=== PATIENT | female | born 1995 | race Caucasian/White ===

== ENCOUNTER 2016-12-30 16:35 | Emergency (ER) | payer SELFPAY ==
[2016-12-30] MEDS ORDERED: Ketorolac 30 MG/ML SDV IVPUSH ONE (17:02)
[2016-12-30] MEDS ORDERED: Ondansetron 4 MG/2 ML SDV IVPUSH ONE (17:02)
[2016-12-30] MEDS ORDERED: Sodium Chloride 0.9% 1,000 ML IV ONE (17:02)
--- NOTE | 2016-12-30 17:15 | EDM.PDOC ---
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 Patient indicates that she has a history of endometriosis that she has had gynecological intervention for the last 2 consecutive years but yet this is the worst she has experienced. Patient indicates she was seen at [facility] and was given tramadol but that that is not addressing her pain. Indicates that [facility] was deep.] Review of systems: As per history of present illness and below otherwise all systems reviewed and negative. Past medical history: As per history of present illness and as reviewed below otherwise noncontributory. Surgical history: As per history of present illness and as reviewed below otherwise noncontributory. Social history: No reported history of drug or alcohol abuse. Family history: As per history of present illness and as reviewed below otherwise noncontributory. Physical exam: HEENT: Atraumatic, normocephalic, pupils reactive, negative for conjunctival pallor or scleral icterus, mucous membranes moist, throat clear, neck supple, nontender, trachea midline. Lungs: Clear to auscultation, breath sounds equal bilaterally, chest nontender. Heart: S1S2, regular, negative for clicks, rubs, or JVD. Abdomen: Soft, nondistended, tenderness specifically over the suprapubic region otherwise diffusely radiating from the symphysis pubis. Negative for masses or hepatosplenomegaly. Negative for costovertebral tenderness. Pelvis: Stable nontender. Genitourinary: Deferred. Rectal: Deferred. Extremities: Atraumatic, negative for cords or calf pain. Neurovascular unremarkable. Neuro: Awake, alert, oriented. Cranial nerves II through XII unremarkable. Cerebellum unremarkable. Motor and sensory unremarkable throughout. Exam nonfocal. 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 Bilateral Lower Anterior Abdomen Pain Score (Numeric/FACES): 9 - Related Data Allergies Allergy/AdvReac Type Severity Reaction Status Date / Time azithromycin Allergy Rash Verified 09/11/16 16:18 lorazepam [From Ativan] Allergy Rash Verified 09/11/16 16:18 Home Meds: Home Meds DULoxetine [Cymbalta] 90 mg PO DAILY 09/05/16 [History] Gabapentin [Neurontin] 1,200 mg PO TID 09/05/16 [History] cloNIDine [Catapres] 1 - 2 tab PO BEDTIME 09/05/16 [History] levETIRAcetam [Keppra] 500 mg PO BID #60 tablet 09/06/16 [Rx] Norgestimate-Ethinyl Estradiol [Sprintec 28 Day Tablet] 12/30/16 [History] Past Medical History HEENT History: Reports: None Cardiovascular History: Reports: None Respiratory History: Reports: Asthma Gastrointestinal History: Reports: None Genitourinary History: Reports: None 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 History: Reports: Endometriosis Musculoskeletal History: Reports: None Neurological History: Reports: Headaches, Chronic, Neuropathy, Peripheral, Seizure, Other (See Below) Other Neuro History: Guillian Warrior Psychiatric History: Reports: None Endocrine/Metabolic History: Reports: None Hematologic History: Reports: None Immunologic History: Reports: None Oncologic (Cancer) History: Reports: None Dermatologic History: Reports: None - Infectious Disease History Infectious Disease History: Reports: None - Past Surgical History Head Surgeries/Procedures: Reports: None HEENT Surgical History: Reports: Adenoidectomy, Tonsillectomy GI Surgical History: Reports: EGD Social & Family History - Family History Family Medical History: Noncontributory - Tobacco Use Smoking Status *Q: Current Some Day Smoker Years of Tobacco use: 1 Packs/Tins Daily: 0.2 - Recreational Drug Use Recreational Drug Use: No ED ROS GENERAL - Review of Systems Review Of Systems: See Below (See history of present illness) ED EXAM, GI/ABD - Physical Exam Exam: See Below (See history of present illness) Course - Vital Signs Last Recorded V/S: Last Vital Signs Temp 36.4 C 12/30/16 16:40 Pulse 80 12/30/16 18:23 Resp 18 12/30/16 16:40 BP 112/56 L 12/30/16 18:23 Pulse Ox 97 12/30/16 16:40 - Orders/Labs/Meds Labs: Laboratory Tests 12/30/16 12/30/16 12/30/16 Range/Units 17:58 17:58 18:14 WBC 10.05 (4.0-11.0) K/uL RBC 4.64 (4.30-5.90) M/uL Hgb 13.3 (12.0-16.0) g/dL Hct 40.1 (36.0-46.0) % MCV 86.4 (80.0-98.0) fL MCH 28.7 (27.0-32.0) pg MCHC 33.2 (31.0-37.0) g/dL RDW Std Deviation 40.0 (28.0-62.0) fl RDW Coeff of Trinity 13 (11.0-15.0) % Plt Count 189 (150-400) K/uL MPV 10.30 (7.40-12.00) fL Neut % (Auto) 77.1 (48.0-80.0) % Lymph % (Auto) 18.1 (16.0-40.0) % Bath % (Auto) 3.0 (0.0-15.0) % Eos % (Auto) 1.6 (0.0-7.0) % Baso % (Auto) 0.2 (0.0-1.5) % Neut # (Auto) 7.8 H (1.4-5.7) K/uL Lymph # (Auto) 1.8 (0.6-2.4) K/uL Bath # (Auto) 0.3 (0.0-0.8) K/uL Eos # (Auto) 0.2 (0.0-0.7) K/uL Baso # (Auto) 0.0 (0.0-0.1) K/uL Nucleated RBC % 0.0 /100WBC Nucleated RBCs # 0 K/uL Sodium 138 (136-146) mmol/L Potassium 3.5 (3.5-5.1) mmol/L Chloride 108 (98-110) mmol/L Carbon Dioxide 20 L (21-31) mmol/L BUN 9 (6.0-23.0) mg/dL Creatinine 0.8 (0.6-1.5) mg/dL Est Cr Clr Drug Dosing 108.79 mL/min Estimated GFR (MDRD) > 60.0 ml/min Glucose 124 H (60-110) mg/dL Calcium 8.4 L (8.8-10.8) mg/dL Total Bilirubin 0.2 (0.1-1.5) mg/dL AST 20 (5-40) IU/L ALT 23 (8-54) IU/L Alkaline Phosphatase 96 (40-150) Total Protein 6.9 (6.0-8.0) g/dL Albumin 3.9 (3.5-5.0) g/dL Globulin 3.0 (2.0-3.5) g/dL Albumin/Globulin Ratio 1.3 (1.3-2.8) Urine Color Urine Appearance Urine pH (5.0-8.0) Ur Specific Mellen (1.001-1.035) Urine Protein (NEGATIVE) mg/dL Urine Glucose (UA) (NEGATIVE) mg/dL Urine Ketones (NEGATIVE) mg/dL Urine Occult Blood (NEGATIVE) Urine Nitrite (NEGATIVE) Urine Bilirubin (NEGATIVE) Urine Ictotest Urine Urobilinogen (<2.0) EU/dL Ur Leukocyte Esterase (NEGATIVE) Urine RBC (0-2/HPF) Urine WBC (0-5/HPF) Ur Epithelial Cells (NONE-FEW) Urine Bacteria (NEGATIVE) Urine Mucus (NONE-MOD) Urine HCG, Qual NEGATIVE (NEGATIVE) 12/30/16 Range/Units 18:14 WBC (4.0-11.0) K/uL RBC (4.30-5.90) M/uL Hgb (12.0-16.0) g/dL Hct (36.0-46.0) % MCV (80.0-98.0) fL MCH (27.0-32.0) pg MCHC (31.0-37.0) g/dL RDW Std Deviation (28.0-62.0) fl RDW Coeff of Trinity (11.0-15.0) % Plt Count (150-400) K/uL MPV (7.40-12.00) fL Neut % (Auto) (48.0-80.0) % Lymph % (Auto) (16.0-40.0) % Bath % (Auto) (0.0-15.0) % Eos % (Auto) (0.0-7.0) % Baso % (Auto) (0.0-1.5) % Neut # (Auto) (1.4-5.7) K/uL Lymph # (Auto) (0.6-2.4) K/uL Bath # (Auto) (0.0-0.8) K/uL Eos # (Auto) (0.0-0.7) K/uL Baso # (Auto) (0.0-0.1) K/uL Nucleated RBC % /100WBC Nucleated RBCs # K/uL Sodium (136-146) mmol/L Potassium (3.5-5.1) mmol/L Chloride (98-110) mmol/L Carbon Dioxide (21-31) mmol/L BUN (6.0-23.0) mg/dL Creatinine (0.6-1.5) mg/dL Est Cr Clr Drug Dosing mL/min Estimated GFR (MDRD) ml/min Glucose (60-110) mg/dL Calcium (8.8-10.8) mg/dL Total Bilirubin (0.1-1.5) mg/dL AST (5-40) IU/L ALT (8-54) IU/L Alkaline Phosphatase (40-150) Total Protein (6.0-8.0) g/dL Albumin (3.5-5.0) g/dL Globulin (2.0-3.5) g/dL Albumin/Globulin Ratio (1.3-2.8) Urine Color DARK YELLOW Urine Appearance CLEAR Urine pH 5.5 (5.0-8.0) Ur Specific Mellen >= 1.030 (1.001-1.035) Urine Protein TRACE (NEGATIVE) mg/dL Urine Glucose (UA) NEGATIVE (NEGATIVE) mg/dL Urine Ketones NEGATIVE (NEGATIVE) mg/dL Urine Occult Blood TRACE-INTACT (NEGATIVE) Urine Nitrite POSITIVE H (NEGATIVE) Urine Bilirubin SMALL H (NEGATIVE) Urine Ictotest POSITIVE Urine Urobilinogen 1.0 (<2.0) EU/dL Ur Leukocyte Esterase NEGATIVE (NEGATIVE) Urine RBC 0-2 (0-2/HPF) Urine WBC 3-6 (0-5/HPF) Ur Epithelial Cells FEW (NONE-FEW) Urine Bacteria FEW (NEGATIVE) Urine Mucus MODERATE (NONE-MOD) Urine HCG, Qual (NEGATIVE) Meds: Medications Discontinued Medications Generic Name Dose Route Start Last Admin Trade Name Mel PRN Reason Stop Dose Admin Sodium Chloride 1,000 mls @ 999 mls/hr 12/30/16 17:02 12/30/16 17:56 Normal Saline IV 12/30/16 18:02 999 mls/hr STAT ONE Administration Ketorolac Tromethamine 30 mg 12/30/16 17:02 12/30/16 18:01 Toradol IVPUSH 12/30/16 17:03 30 mg ONETIME ONE Administration Ondansetron HCl 4 mg 12/30/16 17:02 12/30/16 17:58 Zofran IVPUSH 12/30/16 17:03 4 mg ONETIME ONE Administration Departure - Departure Time of Disposition: 18:56 Disposition: Home, Self-Care 01 Condition: Good Clinical Impression: Pelvic pain, Endometriosis - Discharge Information Instructions: Pelvic Pain, Female Forms: ED Department Discharge Additional Instructions: The following information is given to patients seen in the emergency department who are being discharged to home. This information is to outline your options for follow-up care. We provide all patients seen in our emergency department with a follow-up referral. The need for follow-up, as well as the timing and circumstances, are variable depending upon the specifics of your emergency department visit. If you don't have a primary care physician on staff, we will provide you with a referral. We always advise you to contact your personal physician following an emergency department visit to inform them of the circumstance of the visit and for follow-up with them and/or the need for any referrals to a consulting specialist. The emergency department will also refer you to a specialist when appropriate. This referral assures that you have the opportunity for follow-up care with a specialist. All of these measure are taken in an effort to provide you with optimal care, which includes your follow-up. Under all circumstances we always encourage you to contact your private physician who remains a resource for coordinating your care. When calling for follow-up care, please make the office aware that this follow-up is from your recent emergency room visit. If for any reason you are refused follow-up, please contact the [facility] Emergency Department at and asked to speak to the emergency department charge nurse. You have been provided some pain medication please take as directed Follow-up with PCP in 1-2 days [facility] [address] [place] [id number]
[2016-12-30 18:28] LABS: CHLORIDE,CL 108 mmol/L (98-110); SODIUM,NA 138 mmol/L (136-146)
[2016-12-30 19:20] VITALS: BP 112/49
== END 2016-12-30 19:17 | disposition home or self-care (01) ==
LOC: MW.ED 16:35
DX: N80.9 Endometriosis, unspecified (principal); J45.909 Unspecified asthma, uncomplicated; F17.210 Nicotine dependence, cigarettes, uncomplicated; Z98.890 Other specified postprocedural states; Z79.899 Other long term (current) drug therapy; Z88.1 Allergy status to other antibiotic agents; Z88.8 Allergy status to other drugs, medicaments and biological substances
CPT/HCPCS: 36415; 80053; 81001; 81025; 85025; 96361; 96374; 96375; 99283; J1885; J2405; J7040; 99284

== ENCOUNTER 2016-12-30 19:51 | Emergency (ER) | payer SELFPAY ==
--- NOTE | 2016-12-30 20:06 | EDM.PDOC ---
ED HPI GENERAL MEDICAL PROBLEM - General Stated Complaint: PT HAS STOMACH PAINS Time Seen by Provider: 12/30/16 20:06 Source of Information: Reports: Patient History Limitations: Reports: No Limitations - History of Present Illness INITIAL COMMENTS - FREE TEXT/NARRATIVE: HISTORY AND PHYSICAL: History of present illness: 21-year-old female with a history of endometriosis previously treated surgically , now presents to the emergency department complaining of pelvic pain typical for her with this process. Patient states she has exacerbations about once a year. She has a control implant. Sensation states she's having symptoms that are typical for her, gradual onset recently. No nausea vomiting or diarrhea. No fevers chills sweats or shaking chills. She reports normal bowel and bladder habits. No vaginal discharge or bleeding. Patient was seen earlier and laboratory workup was done but no imaging at that time. Patient is concerned because her pain has persisted and she is concerned that she might need further workup. Full labs earlier today were unremarkable and patient's test was negative Review of systems: As per history of present illness and below otherwise all systems reviewed and negative. Past medical history: As per history of present illness and as reviewed below otherwise noncontributory. Surgical history: As per history of present illness and as reviewed below otherwise noncontributory. Social history: No reported history of drug or alcohol abuse. Family history: As per history of present illness and as reviewed below otherwise noncontributory. Physical exam: Well-appearing patient distress vital signs unremarkable. Abdominal exam is completely benign except mild pelvic tenderness fundal distribution. No guarding or rebound HEENT: Atraumatic, normocephalic, pupils reactive, negative for conjunctival pallor or scleral icterus, mucous membranes moist, throat clear, neck supple, nontender, trachea midline. Lungs: Clear to auscultation, breath sounds equal bilaterally, chest nontender. Heart: S1S2, regular, negative for clicks, rubs, or JVD. Abdomen: Soft, nondistended, nontender. Negative for masses or hepatosplenomegaly. Negative for costovertebral tenderness. Pelvis: Stable nontender. Genitourinary: Deferred. Rectal: Deferred. Extremities: Atraumatic, negative for cords or calf pain. Neurovascular unremarkable. Neuro: Awake, alert, oriented. Cranial nerves II through XII unremarkable. Cerebellum unremarkable. Motor and sensory unremarkable throughout. Exam nonfocal. Diagnostics: [CT abdomen and pelvis] Therapeutics: [Analgesia administered] Impression: [Pelvic pain Exacerbation of endometriosis] Plan: [Signs and symptoms consistent with exacerbation of endometriosis with which patient is very familiar. Appearing and her abdominal exam is benign. Will follow clinically, do pelvic exam and image with CT to rule out the need for any further intervention or treatment.] CT of the abdomen and pelvis unremarkable. As patient has had pain or weeks, findings are consistent with suspected exacerbation of endometriosis complicated by anxiety. Vital signs are stable and no further workup or treatment indicated at this time. Xanax given for anxiolysis and patient aware to follow-up with PCP and with the [employer] doctor to whom her doctor just referred her. Patient and mom agree with outpatient follow-up and strict return precautions given Definitive disposition and diagnosis as appropriate pending reevaluation and review of above. Abdomen Pain Score (Numeric/FACES): 10 - Related Data Allergies Allergy/AdvReac Type Severity Reaction Status Date / Time azithromycin Allergy Rash Verified 12/30/16 20:07 lorazepam [From Ativan] Allergy Rash Verified 12/30/16 20:07 Home Meds: Home Meds DULoxetine [Cymbalta] 90 mg PO DAILY 09/05/16 [History] Gabapentin [Neurontin] 1,200 mg PO TID 09/05/16 [History] cloNIDine [Catapres] 1 - 2 tab PO BEDTIME 09/05/16 [History] levETIRAcetam [Keppra] 500 mg PO BID #60 tablet 09/06/16 [Rx] Norgestimate-Ethinyl Estradiol [Sprintec 28 Day Tablet] 12/30/16 [History] Past Medical History HEENT History: Reports: None Cardiovascular History: Reports: None Respiratory History: Reports: Asthma Gastrointestinal History: Reports: None Genitourinary History: Reports: None 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 Other OB/BYN History: laparoscopy for endometriosis x 2 Musculoskeletal History: Reports: None Neurological History: Reports: Headaches, Chronic, Neuropathy, Peripheral, Seizure, Other (See Below) Other Neuro History: Guillian Bandana Psychiatric History: Reports: None Endocrine/Metabolic History: Reports: None Hematologic History: Reports: None Immunologic History: Reports: None Oncologic (Cancer) History: Reports: None Dermatologic History: Reports: None - Infectious Disease History Infectious Disease History: Reports: None - Past Surgical History Head Surgeries/Procedures: Reports: None HEENT Surgical History: Reports: Adenoidectomy, Tonsillectomy GI Surgical History: Reports: EGD Social & Family History - Family History Family Medical History: Noncontributory - Tobacco Use Smoking Status *Q: Current Some Day Smoker Years of Tobacco use: 1 Packs/Tins Daily: 0.2 - Recreational Drug Use Recreational Drug Use: No ED ROS GENERAL - Review of Systems Review Of Systems: See Below (History of present illness) ED EXAM, GENERAL - Physical Exam Exam: See Below (History of present illness) Course - Vital Signs Last Recorded V/S: Last Vital Signs Temp 36.6 C 12/30/16 20:07 Pulse 82 12/30/16 20:07 Resp 16 12/30/16 20:07 BP 116/58 L 12/30/16 20:07 Pulse Ox 98 12/30/16 20:07 - Orders/Labs/Meds Orders: Active Orders 24 hr Category Date Time Status Abdomen Pelvis w Cont [CT] Stat Exams 12/30/16 20:14 Taken Meds: Medications Discontinued Medications Generic Name Dose Route Start Last Admin Trade Name Oscarq PRN Reason Stop Dose Admin Alprazolam 1 mg 12/30/16 22:58 Xanax PO 12/30/16 22:59 NOW ONE Hydromorphone HCl 1 mg 12/30/16 20:14 12/30/16 20:51 Dilaudid IVPUSH 12/30/16 20:15 1 mg ONETIME ONE Administration Hydromorphone HCl 1 mg 12/30/16 21:55 12/30/16 21:59 Dilaudid IVPUSH 12/30/16 21:56 1 mg NOW STA Administration Iopamidol 100 ml 12/30/16 20:35 12/30/16 20:44 Isovue Multipack-370 (76%) IVPUSH 12/30/16 20:36 85 ml ONETIME STA Administration Ketorolac Tromethamine 30 mg 12/30/16 20:17 12/30/16 20:52 Toradol IVPUSH 12/30/16 20:18 Not Given ONETIME ONE Departure - Departure Time of Disposition: 23:09 Disposition: Home, Self-Care 01 Condition: Good Clinical Impression: Pelvic pain, Endometriosis, Anxiety - Discharge Information Instructions: Pelvic Pain, Female, [id number], Endometriosis, Abdominal Pain , Adult, [id number] Referrals: PCP,None [Primary Care Provider] - Forms: ED Department Discharge Additional Instructions: Your labs and CT of the abdomen and pelvis results were unremarkable today. It appears that this episode of pain is likely a result of your endometriosis. Take ibuprofen 600 mg every 6 hours and use your [place] as previously prescribed as needed. Take your medication for anxiety as previously prescribed as needed. Follow-up with your Dr. and with the [facility] doctor to whom you were referred and return immediately for new severe or worsening symptoms - My Orders Last 24 Hours: My Active Orders 12/30/16 20:14 Abdomen Pelvis w Cont [CT] Stat - Assessment/Plan Last 24 Hours: My Active Orders 12/30/16 20:14 Abdomen Pelvis w Cont [CT] Stat
[2016-12-30] MEDS ORDERED: HYDROmorphone 1 MG/ML Syringe IVPUSH ONE (20:14)
[2016-12-30] MEDS ORDERED: Ketorolac 30 MG/ML SDV IVPUSH ONE (20:17)
[2016-12-30] MEDS ORDERED: Iopamidol 755 MG/ML 500 ML Multipack Bottle IVPUSH STA (20:35)
[2016-12-30] MEDS ORDERED: HYDROmorphone 2 MG/ML Syringe IVPUSH STA (21:55)
[2016-12-30] MEDS ORDERED: ALPRAZolam 0.5 MG Tab PO ONE (22:58)
[2016-12-30 23:43] VITALS: BP 119/57
--- NOTE | 2016-12-31 10:01 | CT ---
EXAM DATE: 12/30/16 PATIENT'S AGE: 21 Patient: ANNY FELIX Facility: [place], [place] Site . Site : 1995 Study: CT Abdomen/Pelvis [id number]/14/2017 8:53:34 PM Ordering Physician: Gerald Forrester Final Report: INDICATION: Abdominal PAIN. History OF Endometriosis. TECHNIQUE: CT abdomen and pelvis acquired with 85 mL of Isovue 370 IV contrast. COMPARISON: None. FINDINGS: Lower chest: Unremarkable. Liver: Unremarkable. Spleen: Unremarkable. Pancreas: Unremarkable. Gallbladder and bile ducts: Unremarkable. Kidneys: Unremarkable. Adrenal glands: Unremarkable. GI tract: Fecal loading of the colon. No obstruction or focal inflammatory changes. Right lower quadrant surgical clips suggesting prior appendectomy. The appendix is not visualized. No free air. Trace pelvic free fluid is likely physiologic. Vascular structures: Unremarkable. Lymph nodes: Unremarkable. Pelvic Organs: Tampon in the vagina. Apparent prominence of the endometrium. No abnormal adnexal lesion evident. The bladder is unremarkable. Bones: No acute abnormality. IMPRESSION: No acute intra-abdominal or pelvic abnormality. Apparent prominence of the endometrium may be physiologic. There is a tampon in the vagina. Followup pelvic ultrasound in 6 weeks could be considered for further evaluation if there is clinical concern. Fecal loading of the colon. Dictated by Barrington Mendes MD @ 12/30/2016 9:22:54 PM Dictated by: Barrington Mendes MD @ 12/30/2016 21:23:10 (Electronic Signature) Report Signed by Proxy. SHELLEY
== END 2016-12-30 23:20 | disposition home or self-care (01) ==
LOC: MW.ED 19:51
DX: N80.9 Endometriosis, unspecified (principal); F41.9 Anxiety disorder, unspecified; F17.210 Nicotine dependence, cigarettes, uncomplicated; Z98.890 Other specified postprocedural states; Z88.1 Allergy status to other antibiotic agents; Z88.8 Allergy status to other drugs, medicaments and biological substances
CPT/HCPCS: 74177; 96374; 96376; 99284; A9270; J1170; Q9967

== ENCOUNTER 2017-01-13 19:03 | Emergency (ER) | payer SELFPAY ==
[2017-01-13] MEDS ORDERED: Diphtheria,Pertussis(Acell),Tetanus Vaccine 0.5 ML Syringe IM ONE (19:16)
[2017-01-13] MEDS ORDERED: Lidocaine 1% 20 ML MDV INJECT ONE (19:16)
[2017-01-13] MEDS ORDERED: Bacitracin Oint 1 GM U/D Packet TOP ONE ×2 (19:51→19:53)
--- NOTE | 2017-01-13 19:59 | EDM.PDOC ---
ED HPI GENERAL MEDICAL PROBLEM - General Chief Complaint: Laceration Stated Complaint: PT CUT LT HAND Time Seen by Provider: 01/13/17 19:14 Source of Information: Reports: Patient History Limitations: Reports: No Limitations - History of Present Illness INITIAL COMMENTS - FREE TEXT/NARRATIVE: HISTORY AND PHYSICAL: []21-year-old female presenting with laceration to the lateral palmar surface History of Present Illness: [] She was reaching into her purse didn't realize her knife was there and sustained injury to the side of her hand does not recall her last tetanus vaccine Review of Systems: As per history of present illness and below otherwise all systems reviewed and negative. Past medical history: As per history of present illness and as reviewed below otherwise noncontributory. Surgical history: As per history of present illness and as reviewed below otherwise noncontributory. Social history: No reported history of drug or alcohol abuse. Family history: As per history of present illness and as reviewed below otherwise noncontributory. Physical exam: Alert and oriented female answering questions appropriately HEENT: Atraumatic, normocehpalic, pupils reactive, negative for conjunctival pallor or scleral icterus, mucous membranes moist, neck supple, nontender, trachea midline. Lungs: Clear to auscultation, breath sounds equal bilaterally, chest non tender. Heart: S1S2, regular, negative for clicks, rubs, or JVD. Extremities: Laceration 2.5cm .25 depth, negative for cords or calf pain. Neurovascular unremarkable. Neuro: Awake, alert, oriented. Cranial nerves II through XII unremarkable. Cerebellum unremarkable. Motor and sensory unremarkable throughout. Exam nonfocal. Diagnostics: [] Therapeutics: [Sutures 3 placed Adacel IM] Impression: [Laceration with repair] Plan: []Home Keep clean and dry Tylenol for discomfort Sutures out in 7-10 days Definitive disposition and diagnosis as appropriate pending reevaluation and review of above. Onset: Today, Sudden Duration: Minutes: left hand Pain Score (Numeric/FACES): 5 - Related Data Allergies Allergy/AdvReac Type Severity Reaction Status Date / Time azithromycin Allergy Rash Verified 01/13/17 19:07 lorazepam [From Ativan] Allergy Rash Verified 01/13/17 19:07 Home Meds: Home Meds DULoxetine [Cymbalta] 90 mg PO DAILY 09/05/16 [History] Norgestimate-Ethinyl Estradiol [Sprintec 28 Day Tablet] 12/30/16 [History] Past Medical History HEENT History: Reports: None Cardiovascular History: Reports: None Respiratory History: Reports: Asthma Gastrointestinal History: Reports: None Genitourinary History: Reports: None 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 History: Reports: Endometriosis Other OB/BYN History: laparoscopy for endometriosis x 2 Musculoskeletal History: Reports: None Neurological History: Reports: Headaches, Chronic, Neuropathy, Peripheral, Seizure, Other (See Below) Other Neuro History: Gu[facility] [place] Psychiatric History: Reports: Anxiety, Depression, Mood Swings Endocrine/Metabolic History: Reports: None Hematologic History: Reports: None Immunologic History: Reports: None Oncologic (Cancer) History: Reports: None Dermatologic History: Reports: None - Infectious Disease History Infectious Disease History: Reports: None - Past Surgical History HEENT Surgical History: Reports: Adenoidectomy, Tonsillectomy GI Surgical History: Reports: EGD Social & Family History - Family History Family Medical History: Noncontributory - Tobacco Use Smoking Status *Q: Current Every Day Smoker Years of Tobacco use: 2 Packs/Tins Daily: 1 - Caffeine Use Caffeine Use: Reports: Coffee Caffeine Use Comment: 1 cup daily - Recreational Drug Use Recreational Drug Use: No ED ROS GENERAL - Review of Systems Review Of Systems: ROS reveals no pertinent complaints other than HPI. ED EXAM, SKIN/RASH Exam: See Below (See dictation) ED SKIN PROCEDURES - Laceration/Wound Repair Left Lateral Hand Lac/Wound length In cm: 2.5 Distal NVT: Neuro & Vascular Intact, No Tendon Injury Anesthetic Type: Local Local Anesthesia - Lidocaine (Xylocaine): 1% Plain Local Anesthetic Volume: 3cc Skin Prep: Saline Exploration/Debridement/Repair: Wound Explored, in a Bloodless Field, Explored to Base Closed with: Sutures Suture Size: 3-0 # of Sutures: 3 Suture Type: Nylon, Interrupted, Simple Drain Placement: No Sterile Dressing Applied: Nurse Tetanus Status Addressed: Yes Complications: No Course - Vital Signs Last Recorded V/S: Last Vital Signs Temp 36.3 C 01/13/17 19:12 Pulse 86 01/13/17 19:12 Resp 18 01/13/17 19:12 BP 130/74 01/13/17 19:12 Pulse Ox 98 01/13/17 19:12 - Orders/Labs/Meds Orders: Active Orders 24 hr Category Date Time Status Vaccines to be Administered [RC] PER UNIT ROUTINE Care 01/13/17 19:16 Active Bacitracin [Bacitracin Oint 1 GM] Med 01/13/17 19:53 Once 1 dose TOP ONETIME ONE Medication Orders Bacitracin (Bacitracin Oint 1 Gm) 1 dose TOP ONETIME ONE Stop: 01/13/17 19:54 Meds: Medications Generic Name Dose Route Start Last Admin Trade Name Freq PRN Reason Stop Dose Admin Bacitracin 1 dose 01/13/17 19:53 Bacitracin Oint 1 Gm TOP 01/13/17 19:54 ONETIME ONE Discontinued Medications Generic Name Dose Route Start Last Admin Trade Name Freq PRN Reason Stop Dose Admin Bacitracin 1 dose 01/13/17 19:51 Bacitracin Oint 1 Gm TOP 01/13/17 19:52 ONETIME ONE Diphtheria/Tetanus/Acell Pertussis 0.5 ml 01/13/17 19:16 01/13/17 19:30 Adacel IM 01/13/17 19:17 0.5 ml .ONCE ONE Administration Lidocaine HCl 20 ml 01/13/17 19:16 01/13/17 19:30 Xylocaine 1% INJECT 01/13/17 19:17 20 ml ONETIME ONE Administration Departure - Departure Time of Disposition: 19:57 Disposition: Home, Self-Care 01 Condition: Good Clinical Impression: Laceration - Discharge Information Forms: ED Department Discharge Additional Instructions: The following information is given to patients seen in the emergency department who are being discharged to home. This information is to outline your options for follow-up care. We provide all patients seen in our emergency department with a follow-up referral. The need for follow-up, as well as the timing and circumstances, are variable depending upon the specifics of your emergency department visit. If you don't have a primary care physician on staff, we will provide you with a referral. We always advise you to contact your personal physician following an emergency department visit to inform them of the circumstance of the visit and for follow-up with them and/or the need for any referrals to a consulting specialist. The emergency department will also refer you to a specialist when appropriate. This referral assures that you have the opportunity for followup care with a specialist. All of these measure are taken in an effort to provide you with optimal care, which includes your followup. Under all circumstances we always encourage you to contact your private physician who remains a resource for coordinating your care. When calling for followup care, please make the office aware that this follow-up is from your recent emergency room visit. If for any reason you are refused follow-up, please contact the [facility] emergency department at and asked to speak to the emergency department charge nurse. Sutures out in 7-10 days Return if any signs of infection should occur - My Orders Last 24 Hours: My Active Orders 01/13/17 19:16 Vaccines to be Administered [RC] PER UNIT ROUTINE 01/13/17 19:53 Bacitracin [Bacitracin Oint 1 GM] 1 dose TOP ONETIME ONE - Assessment/Plan Last 24 Hours: My Active Orders 01/13/17 19:16 Vaccines to be Administered [RC] PER UNIT ROUTINE 01/13/17 19:53 Bacitracin [Bacitracin Oint 1 GM] 1 dose TOP ONETIME ONE
[2017-01-13 20:20] VITALS: BP 138/81
== END 2017-01-13 20:05 | disposition home or self-care (01) ==
LOC: MW.ED 19:03
DX: S61.412A Laceration without foreign body of left hand, initial encounter (principal); Z23 Encounter for immunization; J45.909 Unspecified asthma, uncomplicated; F41.9 Anxiety disorder, unspecified; F32.9 Major depressive disorder, single episode, unspecified; F17.210 Nicotine dependence, cigarettes, uncomplicated; Z98.890 Other specified postprocedural states; Z79.899 Other long term (current) drug therapy; Z88.1 Allergy status to other antibiotic agents; Z88.8 Allergy status to other drugs, medicaments and biological substances; W26.0XXA Contact with knife, initial encounter
CPT/HCPCS: 12001; 90471; 90715; 99282; 99283-25

== ENCOUNTER 2017-03-02 13:43 | Emergency (ER) | payer OTHER, BC ==
[2017-03-02] MEDS ORDERED: Octyl 2-Cyanoacrylate 1 Tube TOP ONE (14:00)
[2017-03-02] MEDS ORDERED: Lidocaine/EPINEPHrine/Tetracaine Soln 1 ML TOP ONE (14:07)
--- NOTE | 2017-03-02 14:44 | EDM.PDOC ---
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 She used dustpan to try to scrape it off the floor and slipped and she cut her hand on the glass object Review of systems: As per history of present illness and below otherwise all systems reviewed and negative. Past medical history: As per history of present illness and as reviewed below otherwise noncontributory. Surgical history: As per history of present illness and as reviewed below otherwise noncontributory. Social history: No reported history of drug or alcohol abuse. Family history: As per history of present illness and as reviewed below otherwise noncontributory. Physical exam: General: Well developed, well nourished in NAD HEENT: Atraumatic, normocephalic, pupils reactive, negative for conjunctival pallor or scleral icterus, mucous membranes moist, throat clear, neck supple, nontender, trachea midline. Lungs: Clear to auscultation, breath sounds equal bilaterally, chest nontender. Heart: S1S2, regular, negative for clicks, rubs, or JVD. Abdomen: Soft, nondistended, nontender. Negative for masses or hepatosplenomegaly. Negative for costovertebral tenderness. Pelvis: Stable nontender. Genitourinary: Deferred. Rectal: Deferred. Extremities: Left index finger laceration 2 cm laterally, negative for cords or calf pain. Neurovascular unremarkable. Neuro: Awake, alert, oriented. Cranial nerves II through XII unremarkable. Cerebellum unremarkable. Motor and sensory unremarkable throughout. Exam nonfocal. Diagnostics: [] Therapeutics: []Dermabond finger splint Impression: []Laceration left index finger Plan: []Wear splint for 3 days Dermabond instructions return if any symptoms worsens or change or any signs of infection occur Definitive disposition and diagnosis as appropriate pending reevaluation and review of above. 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 Other OB/BYN History: laparoscopy for endometriosis x 2 Musculoskeletal History: Reports: None Neurological History: Reports: Headaches, Chronic, Neuropathy, Peripheral, Seizure, Other (See Below) Other Neuro History: Guillian [place] Psychiatric History: Reports: Anxiety, Depression, Mood Swings Endocrine/Metabolic History: Reports: None Hematologic History: Reports: None Immunologic History: Reports: None Oncologic (Cancer) History: Reports: None Dermatologic History: Reports: None - Infectious Disease History Infectious Disease History: Reports: None - Past Surgical History HEENT Surgical History: Reports: Adenoidectomy, Tonsillectomy GI Surgical History: Reports: EGD Social & Family History - Family History Family Medical History: Noncontributory - Tobacco Use Smoking Status *Q: Current Every Day Smoker Years of Tobacco use: 1 Packs/Tins Daily: 0.5 - Caffeine Use Caffeine Use: Reports: Coffee, Energy Drinks, Soda, Tea Caffeine Use Comment: 1 cup daily - Recreational Drug Use Recreational Drug Use: No ED ROS GENERAL - Review of Systems Review Of Systems: See Below (See history of present illness) ED EXAM, SKIN/RASH Exam: See Below (See history of present illness) ED SKIN PROCEDURES - Laceration/Wound Repair Left Finger Appearance: Subcutaneous Anesthetic Type: Topical Local Anesthesia - Lidocaine (Xylocaine): 1% Plain Local Anesthesia - Bupivicaine (Marcaine): 0.5% Plain Exploration/Debridement/Repair: In a Bloodless Field Closed with: Dermabond Drain Placement: No Sterile Dressing Applied: Nurse Tetanus Status Addressed: Yes Complications: No Course - Vital Signs Last Recorded V/S: Last Vital Signs Temp 37.1 C 03/02/17 13:54 Pulse 91 03/02/17 13:54 Resp 18 03/02/17 13:54 BP 122/71 03/02/17 13:54 Pulse Ox 99 03/02/17 13:54 - Orders/Labs/Meds Meds: Medications Discontinued Medications Generic Name Dose Route Start Last Admin Trade Name Mel PRN Reason Stop Dose Admin Lidocaine/Tetracaine 1 ml 03/02/17 14:07 03/02/17 14:10 Let Soln TOP 03/02/17 14:08 1 ml ONETIME ONE Administration Octyl Cyanoacrylate 1 applic 03/02/17 14:00 03/02/17 14:06 Dermabond Advance TOP 03/02/17 14:01 1 applic ONETIME ONE Administration Departure - Departure Time of Disposition: 14:42 Disposition: Home, Self-Care 01 Condition: Good Clinical Impression: Laceration of left index finger Qualifiers: Encounter type: initial encounter Damage to nail status: without damage Foreign body presence: without foreign body Qualified Code(s): S61.211A - Laceration without foreign body of left index finger without damage to nail, initial encounter - Discharge Information Forms: ED Department Discharge Additional Instructions: The following information is given to patients seen in the emergency department who are being discharged to home. This information is to outline your options for follow-up care. We provide all patients seen in our emergency department with a follow-up referral. The need for follow-up, as well as the timing and circumstances, are variable depending upon the specifics of your emergency department visit. If you don't have a primary care physician on staff, we will provide you with a referral. We always advise you to contact your personal physician following an emergency department visit to inform them of the circumstance of the visit and for follow-up with them and/or the need for any referrals to a consulting specialist. The emergency department will also refer you to a specialist when appropriate. This referral assures that you have the opportunity for follow-up care with a specialist. All of these measure are taken in an effort to provide you with optimal care, which includes your follow-up. Under all circumstances we always encourage you to contact your private physician who remains a resource for coordinating your care. When calling for follow-up care, please make the office aware that this follow-up is from your recent emergency room visit. If for any reason you are refused follow-up, please contact the [facility] Emergency Department at and asked to speak to the emergency department charge nurse. Dermabond instructions to let glue fall off, no oils to be used and to return to ED or follow up with PMD if any signs of infection occur or any
[2017-03-02 14:51] VITALS: BP 116/70
== END 2017-03-02 14:50 | disposition home or self-care (01) ==
LOC: MW.ED 13:43
DX: S61.211A Laceration without foreign body of left index finger without damage to nail, initial encounter (principal); J45.909 Unspecified asthma, uncomplicated; F32.9 Major depressive disorder, single episode, unspecified; F41.9 Anxiety disorder, unspecified; F17.210 Nicotine dependence, cigarettes, uncomplicated; Z98.890 Other specified postprocedural states; Z79.899 Other long term (current) drug therapy; Z88.1 Allergy status to other antibiotic agents; Z88.8 Allergy status to other drugs, medicaments and biological substances; W25.XXXA Contact with sharp glass, initial encounter
CPT/HCPCS: 12001; 99283; A9270; 99282

== ENCOUNTER 2017-12-09 14:21 | Emergency (ER) | payer BC, OTHER ==
[2017-12-09] MEDS ORDERED: Ketorolac 30 MG/ML SDV IVPUSH ONE (14:56)
[2017-12-09] MEDS ORDERED: Sodium Chloride 0.9% 2.5 ML Syringe FLUSH PRN (14:57)
[2017-12-09] MEDS ORDERED: Sodium Chloride 0.9% 10 ML Syringe FLUSH PRN (14:57)
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
[2017-12-09 15:36] LABS: CHLORIDE,CL 107 mmol/L (98-107); SODIUM,NA 142 mmol/L (136-145)
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
[2017-12-09 16:44] VITALS: BP 109/54
[2017-12-09] MEDS ORDERED: Iopamidol 755 MG/ML 500 ML Multipack Bottle IVPUSH STA (16:59)
== END 2017-12-09 17:14 | disposition home or self-care (01) ==
LOC: MW.ED 14:21
DX: S30.1XXA Contusion of abdominal wall, initial encounter (principal); Z88.1 Allergy status to other antibiotic agents; Z88.8 Allergy status to other drugs, medicaments and biological substances; F17.210 Nicotine dependence, cigarettes, uncomplicated; X58.XXXA Exposure to other specified factors, initial encounter
CPT/HCPCS: 36415; 74177; 80053; 81025; 83690; 85025; 85610; 96374; 99284; J1885; Q9967

== ENCOUNTER 2018-01-05 05:39 | Emergency (ER) | payer BC ==
--- NOTE | 2018-01-05 05:52 | EDM.PDOC ---
ED HPI GENERAL MEDICAL PROBLEM - General Chief Complaint: Gastrointestinal Problem Stated Complaint: THROWING UP Time Seen by Provider: 01/05/18 05:49 Source of Information: Reports: Patient History Limitations: Reports: No Limitations - History of Present Illness INITIAL COMMENTS - FREE TEXT/NARRATIVE: HISTORY AND PHYSICAL: History of present illness: 22-year-old female presenting emergency department with chief complaint of nausea and vomiting starting this a.m. with past medical history of Guillain- Wilks syndrome, and pseudoseizures. Patient states that it 4 AM she woke feeling very nauseous and lightheaded. This continued to progress until she had multiple episodes of vomiting without blood. States that she drove to emergency department had to stop 3 times secondary to her nausea and vomiting. Reports 2 days ago having some mild dysuria. She had no associated diarrhea or abdominal pain. Has not been around other individuals with similar symptoms. Denies any recent travel, change in diet, or sick exposures. Unknown last menstrual period and whether or not she could be . Originally from [place] has been in [place] for approximately 1 year. Review of systems: As per history of present illness and below otherwise all systems reviewed and negative. Past medical history: As per history of present illness and as reviewed below otherwise noncontributory. Surgical history: As per history of present illness and as reviewed below otherwise noncontributory. Social history: No reported history of drug or alcohol abuse. Family history: As per history of present illness and as reviewed below otherwise noncontributory. Physical exam: HEENT: Atraumatic, normocephalic, pupils reactive, negative for conjunctival pallor or scleral icterus, mucous membranes moist, throat clear, neck supple, nontender, trachea midline. Lungs: Clear to auscultation, breath sounds equal bilaterally, chest nontender. Heart: S1S2, regular, negative for clicks, rubs, or JVD. Abdomen: Soft, nondistended, nontender. Negative for masses or hepatosplenomegaly. Negative for costovertebral tenderness. Pelvis: Stable nontender. Genitourinary: Deferred. Rectal: Deferred. Extremities: Atraumatic, negative for cords or calf pain. Neurovascular unremarkable. Neuro: Awake, alert, oriented. Cranial nerves II through XII unremarkable. Cerebellum unremarkable. Motor and sensory unremarkable throughout. Exam nonfocal. Diagnostics: UA/UC, urine hCG all Therapeutics: 1 L normal saline IV 1, Zofran 8 mg IV 1, Zofran 4 mg ODT Q6 hours when necessary nausea Toradol 60 mg IM 1, Phenergan 25 mg IM 1 Impression: Viral gastroenteritis Plan: Patient initially had very little improvement with Zofran 8 mg IV. She did begin to improve after 1 L normal saline and was given an IM injection of Phenergan 25 mg. She also developed a headache which was relieved with 60 mg of Toradol IM 1. Patient urinalysis was negative and hCG was negative for . Patient most likely has viral gastroenteritis which was explained and the patient. She was in a prescription for Zofran 4 mg ODT and interactive follow-up with her primary care physician. She should also return to emergency department if she had any new or worsening symptoms. Patient was discharged in good condition with above instructions. - Related Data Allergies Allergy/AdvReac Type Severity Reaction Status Date / Time azithromycin Allergy Rash Verified 12/09/17 14:41 lorazepam [From Ativan] Allergy Rash Verified 12/09/17 14:41 Home Meds: Home Meds . 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 History: Reports: Endometriosis Other OB/BYN History: laparoscopy for endometriosis x 3 Musculoskeletal History: Reports: None Neurological History: Reports: Neuropathy, Peripheral, Seizure, Other (See Below ) Other Neuro History: Guillian [place] Psychiatric History: Reports: Anxiety, Depression, Mood Swings Endocrine/Metabolic History: Reports: None Hematologic History: Reports: None Immunologic History: Reports: None Oncologic (Cancer) History: Reports: None Dermatologic History: Reports: None - Infectious Disease History Infectious Disease History: Reports: None - Past Surgical History HEENT Surgical History: Reports: Adenoidectomy, Tonsillectomy GI Surgical History: Reports: Appendectomy, EGD Female Surgical History: Reports: Endometrial Ablation Social & Family History - Family History Family Medical History: Noncontributory - Caffeine Use Caffeine Use: Reports: Coffee, Energy Drinks, Soda, Tea Caffeine Use Comment: 1 cup daily ED ROS GENERAL - Review of Systems Review Of Systems: ROS reveals no pertinent complaints other than HPI. ED EXAM, GENERAL - Physical Exam Exam: See Below Course - Vital Signs Last Recorded V/S: Last Vital Signs Temp 98.1 F 01/05/18 05:55 Pulse 61 01/05/18 07:31 Resp 20 01/05/18 07:31 BP 104/35 L 01/05/18 07:31 Pulse Ox 100 01/05/18 07:31 - Orders/Labs/Meds Orders: Active Orders 24 hr Category Date Time Status CULTURE URINE [RM] Stat Lab 01/05/18 06:10 Ordered HCG QUALITATIVE,URINE [URCHEM] Stat Lab 01/05/18 06:10 Ordered UA W/MICROSCOPIC [URIN] Stat Lab 01/05/18 06:10 Ordered Labs: Laboratory Tests 01/05/18 01/05/18 Range/Units 06:10 06:10 Urine Color YELLOW Urine Appearance CLEAR Urine pH 5.5 (5.0-8.0) Ur Specific [place] >= 1.030 (1.001-1.035) Urine Protein NEGATIVE (NEGATIVE) mg/dL Urine Glucose (UA) NEGATIVE (NEGATIVE) mg/dL Urine Ketones NEGATIVE (NEGATIVE) mg/dL Urine Occult Blood NEGATIVE (NEGATIVE) Urine Nitrite NEGATIVE (NEGATIVE) Urine Bilirubin NEGATIVE (NEGATIVE) Urine Urobilinogen 0.2 (<2.0) EU/dL Ur Leukocyte Esterase NEGATIVE (NEGATIVE) Urine RBC 0-1 (0-2/HPF) Urine WBC 0-1 (0-5/HPF) Ur Epithelial Cells FEW (NONE-FEW) Urine Bacteria FEW (NEGATIVE) Urine HCG, Qual NEGATIVE (NEGATIVE) Meds: Medications Discontinued Medications Generic Name Dose Route Start Last Admin Trade Name Mel PRN Reason Stop Dose Admin Sodium Chloride 1,000 mls @ 999 mls/hr 01/05/18 06:02 01/05/18 06:18 Normal Saline IV 01/05/18 07:02 999 mls/hr STAT ONE Administration Ketorolac Tromethamine 60 mg 01/05/18 06:54 01/05/18 07:18 Toradol IM 01/05/18 06:55 Not Given ONETIME ONE Ketorolac Tromethamine 30 mg 01/05/18 07:16 01/05/18 07:27 Toradol IVPUSH 01/05/18 07:17 30 mg ONETIME ONE Administration Ondansetron HCl 8 mg 01/05/18 06:02 01/05/18 06:19 Zofran IVPUSH 01/05/18 06:03 8 mg ONETIME ONE Administration Promethazine HCl 25 mg 01/05/18 06:54 01/05/18 07:27 Phenergan IM 01/05/18 06:55 25 mg ONETIME ONE Administration Departure - Departure Time of Disposition: 06:07 Disposition: Home, Self-Care 01 Condition: Good Clinical Impression: Viral gastroenteritis - Discharge Information Referrals: Carlita Rosas PA [Primary Care Provider] - Forms: ED Department Discharge Additional Instructions: My general discharge The following information is given to patients seen in the emergency department who are being discharged to home. This information is to outline your options for follow-up care. We provide all patients seen in our emergency department with a follow-up referral. The need for follow-up, as well as the timing and circumstances, are variable depending upon the specifics of your emergency department visit. If you don't have a primary care physician on staff, we will provide you with a referral. We always advise you to contact your personal physician following an emergency department visit to inform them of the circumstance of the visit and for follow-up with them and/or the need for any referrals to a consulting specialist. The emergency department will also refer you to a specialist when appropriate. This referral assures that you have the opportunity for follow-up care with a specialist. All of these measure are taken in an effort to provide you with optimal care, which includes your follow-up. Under all circumstances we always encourage you to contact your private physician who remains a resource for coordinating your care. When calling for follow-up care, please make the office aware that this follow-up is from your recent emergency room visit. If for any reason you are refused follow-up, please contact the [facility] Emergency Department at and asked to speak to the emergency department charge nurse. [facility] Primary Care [address] [place] [id number] [facility] Primary Care - Women's Health [address] [place] [id number] [facility] [address] [place] [phone] Take medications as prescribed. Follow-up with a primary care physician. Continue to push fluids and bland diet. Return emergency department if any new or worsening symptoms. - My Orders Last 24 Hours: My Active Orders 01/05/18 06:10 CULTURE URINE [RM] Stat HCG QUALITATIVE,URINE [URCHEM] Stat UA W/MICROSCOPIC [URIN] Stat - Assessment/Plan Last 24 Hours: My Active Orders 01/05/18 06:10 CULTURE URINE [RM] Stat HCG QUALITATIVE,URINE [URCHEM] Stat UA W/MICROSCOPIC [URIN] Stat
[2018-01-05] MEDS ORDERED: Ondansetron 4 MG/2 ML SDV IVPUSH ONE (06:02)
[2018-01-05] MEDS ORDERED: Sodium Chloride 0.9% 1,000 ML IV ONE (06:02)
[2018-01-05] MEDS ORDERED: Ketorolac 60 MG/2 ML SDV IM ONE (06:54)
[2018-01-05] MEDS ORDERED: Promethazine 25 MG/ML SDV IM ONE (06:54)
[2018-01-05] MEDS ORDERED: Ketorolac 30 MG/ML SDV IVPUSH ONE (07:16)
[2018-01-05 08:25] VITALS: BP 111/54
== END 2018-01-05 08:23 | disposition home or self-care (01) ==
LOC: MW.ED 05:39
DX: A08.4 Viral intestinal infection, unspecified (principal); Z88.1 Allergy status to other antibiotic agents; Z88.8 Allergy status to other drugs, medicaments and biological substances
CPT/HCPCS: 81001; 81025; 87086; 96361; 96372; 96374; 96375; 99283; J1885; J2405; J2550; J7040

== ENCOUNTER 2018-07-27 13:34 | Emergency (ER) | payer BC ==
--- NOTE | 2018-07-27 14:17 | EDM.PDOC ---
ED HPI GENERAL MEDICAL PROBLEM - General Chief Complaint: FINISHER HOT STRIP Problem Stated Complaint: 15 wks with severe cramps Time Seen by Provider: 07/27/18 14:17 Source of Information: Reports: Patient History Limitations: Reports: No Limitations - History of Present Illness INITIAL COMMENTS - FREE TEXT/NARRATIVE: HISTORY AND PHYSICAL: History of present illness: Patient is a 22-year-old female approximately 16 weeks gestation here with complaint of abdominal/pelvic pain 3 hours prior to arrival to the ED. Patient states that she called her OB, Francine Ramos, and was told to be seen in the ED. She states it is a sharp constant pain with occasional cramping. She denies any vaginal discharge or bleeding. She denies fevers, chills, nausea, vomiting, diarrhea, dysuria, hematuria. Review of systems: As per history of present illness and below otherwise all systems reviewed and negative. Past medical history: As per history of present illness and as reviewed below otherwise noncontributory. Surgical history: As per history of present illness and as reviewed below otherwise noncontributory. Social history: No reported history of drug or alcohol abuse. Family history: As per history of present illness and as reviewed below otherwise noncontributory. Physical exam: General: Patient sitting comfortably in no acute distress and nontoxic appearing HEENT: Atraumatic, normocephalic, pupils reactive, negative for conjunctival pallor or scleral icterus, mucous membranes moist, throat clear, neck supple, nontender, trachea midline. No meningeal signs. Lungs: Clear to auscultation, breath sounds equal bilaterally, chest nontender. Heart: S1S2, regular, negative for clicks, rubs, or overt murmur. Abdomen: Mild lower abdominal tenderness to palpation. Soft, nondistended. Negative for masses or hepatosplenomegaly. Negative for costovertebral tenderness. Pelvis: Stable nontender. Genitourinary: Deferred. Rectal: Deferred. Extremities: Atraumatic, negative for cords or calf pain. Neurovascular unremarkable. Neuro: Awake, alert, oriented. Cranial nerves II through XII unremarkable. Cerebellum unremarkable. Motor and sensory unremarkable throughout. Exam nonfocal. Notes: Diagnostics: CBC, CMP, hcg quant, OB US Therapeutics: None Prescriptions: None Impression: Abdominal pain in Plan: 1. Pelvic rest as instructed 2. Follow up with your primary care provider 3. Return to ED as needed as discussed Definitive disposition and diagnosis as appropriate pending reevaluation and review of above. Lower Abdomen Pain Score (Numeric/FACES): 8 - Related Data Allergies Allergy/AdvReac Type Severity Reaction Status Date / Time azithromycin Allergy Rash Verified 07/27/18 13:59 lorazepam [From Ativan] Allergy Rash Verified 07/27/18 13:59 Home Meds: Home Meds Pnv No.122/Iron/Folic Acid [ Multi Tablet] 1 tab DAILY 07/27/18 [History ] Past Medical History HEENT History: Reports: None Cardiovascular History: Reports: None Respiratory History: Reports: Asthma Gastrointestinal History: Reports: None Genitourinary History: Reports: None FINISHER HOT STRIP History: Reports: Endometriosis Other FINISHER HOT STRIP History: laparoscopy for endometriosis x 3 Musculoskeletal History: Reports: None Neurological History: Reports: Neuropathy, Peripheral, Seizure, Other (See Below ) Other Neuro History: Guillian [place] Psychiatric History: Reports: Anxiety, Depression, Mood Swings Endocrine/Metabolic History: Reports: None Hematologic History: Reports: None Immunologic History: Reports: None Oncologic (Cancer) History: Reports: None Dermatologic History: Reports: None - Infectious Disease History Infectious Disease History: Reports: None - Past Surgical History HEENT Surgical History: Reports: Adenoidectomy, Tonsillectomy GI Surgical History: Reports: Appendectomy, EGD Female Surgical History: Reports: Endometrial Ablation Social & Family History - Family History Family Medical History: Noncontributory - Tobacco Use Smoking Status *Q: Never Smoker - Caffeine Use Caffeine Use: Reports: Coffee, Energy Drinks, Soda, Tea Caffeine Use Comment: 1 cup daily - Recreational Drug Use Recreational Drug Use: No ED ROS GENERAL - Review of Systems Review Of Systems: ROS reveals no pertinent complaints other than HPI. ED EXAM - Physical Exam Exam: See Below (see dictation) Course - Vital Signs Last Recorded V/S: Last Vital Signs Temp 97.0 F 07/27/18 13:57 Pulse 69 07/27/18 13:57 Resp 18 07/27/18 13:57 BP 110/43 L 07/27/18 13:57 Pulse Ox 99 07/27/18 13:57 - Orders/Labs/Meds Labs: Laboratory Tests 07/27/18 07/27/18 07/27/18 Range/Units 14:29 14:32 14:32 WBC 8.31 (4.0-11.0) K/uL RBC 3.86 L (4.30-5.90) M/uL Hgb 11.6 L (12.0-16.0) g/dL Hct 33.5 L (36.0-46.0) % MCV 86.8 (80.0-98.0) fL MCH 30.1 (27.0-32.0) pg MCHC 34.6 (31.0-37.0) g/dL RDW Std Deviation 42.1 (28.0-62.0) fl RDW Coeff of Trinity 13 (11.0-15.0) % Plt Count 134 L (150-400) K/uL MPV 10.40 (7.40-12.00) fL Neut % (Auto) 71.6 (48.0-80.0) % Lymph % (Auto) 23.6 (16.0-40.0) % [place] % (Auto) 4.2 (0.0-15.0) % Eos % (Auto) 0.4 (0.0-7.0) % Baso % (Auto) 0.2 (0.0-1.5) % Neut # (Auto) 6.0 H (1.4-5.7) K/uL Lymph # (Auto) 2.0 (0.6-2.4) K/uL [place] # (Auto) 0.4 (0.0-0.8) K/uL Eos # (Auto) 0.0 (0.0-0.7) K/uL Baso # (Auto) 0.0 (0.0-0.1) K/uL Nucleated RBC % 0.0 /100WBC Nucleated RBCs # 0 K/uL Sodium 138 (136-145) mmol/L Potassium 4.1 (3.5-5.1) mmol/L Chloride 104 (98-107) mmol/L Carbon Dioxide 25.5 (21.0-32.0) mmol/L BUN 8 (7.0-18.0) mg/dL Creatinine 0.6 (0.6-1.0) mg/dL Est Cr Clr Drug Dosing 149.62 mL/min Estimated GFR (MDRD) > 60.0 ml/min Glucose 88 (74-106) mg/dL Calcium 9.2 (8.5-10.1) mg/dL Total Bilirubin 0.2 (0.2-1.0) mg/dL AST 14 L (15-37) IU/L ALT 21 (14-63) IU/L Alkaline Phosphatase 82 (46-116) U/L Total Protein 6.8 (6.4-8.2) g/dL Albumin 3.2 L (3.4-5.0) g/dL Globulin 3.6 (2.6-4.0) g/dL Albumin/Globulin Ratio 0.9 (0.9-1.6) HCG, Quant mIU/mL Urine Color YELLOW Urine Appearance CLEAR Urine pH 6.0 (5.0-8.0) Ur Specific Ava 1.020 (1.001-1.035) Urine Protein NEGATIVE (NEGATIVE) mg/dL Urine Glucose (UA) NEGATIVE (NEGATIVE) mg/dL Urine Ketones NEGATIVE (NEGATIVE) mg/dL Urine Occult Blood NEGATIVE (NEGATIVE) Urine Nitrite NEGATIVE (NEGATIVE) Urine Bilirubin NEGATIVE (NEGATIVE) Urine Urobilinogen 0.2 (<2.0) EU/dL Ur Leukocyte Esterase NEGATIVE (NEGATIVE) Urine RBC 0-1 (0-2/HPF) Urine WBC 0-2 (0-5/HPF) Ur Epithelial Cells FEW (NONE-FEW) Urine Bacteria RARE (NEGATIVE) 07/27/18 Range/Units 14:32 WBC (4.0-11.0) K/uL RBC (4.30-5.90) M/uL Hgb (12.0-16.0) g/dL Hct (36.0-46.0) % MCV (80.0-98.0) fL MCH (27.0-32.0) pg MCHC (31.0-37.0) g/dL RDW Std Deviation (28.0-62.0) fl RDW Coeff of Trinity (11.0-15.0) % Plt Count (150-400) K/uL MPV (7.40-12.00) fL Neut % (Auto) (48.0-80.0) % Lymph % (Auto) (16.0-40.0) % [place] % (Auto) (0.0-15.0) % Eos % (Auto) (0.0-7.0) % Baso % (Auto) (0.0-1.5) % Neut # (Auto) (1.4-5.7) K/uL Lymph # (Auto) (0.6-2.4) K/uL [place] # (Auto) (0.0-0.8) K/uL Eos # (Auto) (0.0-0.7) K/uL Baso # (Auto) (0.0-0.1) K/uL Nucleated RBC % /100WBC Nucleated RBCs # K/uL Sodium (136-145) mmol/L Potassium (3.5-5.1) mmol/L Chloride (98-107) mmol/L Carbon Dioxide (21.0-32.0) mmol/L BUN (7.0-18.0) mg/dL Creatinine (0.6-1.0) mg/dL Est Cr Clr Drug Dosing mL/min Estimated GFR (MDRD) ml/min Glucose (74-106) mg/dL Calcium (8.5-10.1) mg/dL Total Bilirubin (0.2-1.0) mg/dL AST (15-37) IU/L ALT (14-63) IU/L Alkaline Phosphatase (46-116) U/L Total Protein (6.4-8.2) g/dL Albumin (3.4-5.0) g/dL Globulin (2.6-4.0) g/dL Albumin/Globulin Ratio (0.9-1.6) HCG, Quant 08935.0 mIU/mL Urine Color Urine Appearance Urine pH (5.0-8.0) Ur Specific Ava (1.001-1.035) Urine Protein (NEGATIVE) mg/dL Urine Glucose (UA) (NEGATIVE) mg/dL Urine Ketones (NEGATIVE) mg/dL Urine Occult Blood (NEGATIVE) Urine Nitrite (NEGATIVE) Urine Bilirubin (NEGATIVE) Urine Urobilinogen (<2.0) EU/dL Ur Leukocyte Esterase (NEGATIVE) Urine RBC (0-2/HPF) Urine WBC (0-5/HPF) Ur Epithelial Cells (NONE-FEW) Urine Bacteria (NEGATIVE) Departure - Departure Time of Disposition: 15:36 Disposition: Home, Self-Care 01 Condition: Good Clinical Impression: Abdominal pain affecting - Discharge Information Referrals: Tessa Neal NP [Primary Care Provider] - Forms: ED Department Discharge Additional Instructions: The following information is given to patients seen in the emergency department who are being discharged to home. This information is to outline your options for follow-up care. We provide all patients seen in our emergency department with a follow-up referral. The need for follow-up, as well as the timing and circumstances, are variable depending upon the specifics of your emergency department visit. If you don't have a primary care physician on staff, we will provide you with a referral. We always advise you to contact your personal physician following an emergency department visit to inform them of the circumstance of the visit and for follow-up with them and/or the need for any referrals to a consulting specialist. The emergency department will also refer you to a specialist when appropriate. This referral assures that you have the opportunity for follow-up care with a specialist. All of these measure are taken in an effort to provide you with optimal care, which includes your follow-up. Under all circumstances we always encourage you to contact your private physician who remains a resource for coordinating your care. When calling for follow-up care, please make the office aware that this follow-up is from your recent emergency room visit. If for any reason you are refused follow-up, please contact the [facility] Emergency Department at and asked to speak to the emergency department charge nurse. [facility] - Women's Health [address] [place] [id number] 1. Pelvic rest as instructed 2. Follow up with your primary care provider 3. Return to ED as needed as discussed
[2018-07-27 15:07] LABS: CHLORIDE,CL 104 mmol/L (98-107); SODIUM,NA 138 mmol/L (136-145)
--- NOTE | 2018-07-27 15:25 | US ---
EXAMINATION: Transabdominal obstetric ultrasound HISTORY: , cramping COMPARISON: None TECHNIQUE: Grayscale, color Doppler, and spectral Doppler imaging obtained. FINDINGS: There is a single live anterior with a heart rate is 153 bpm. The biparietal diameter measures 3.4 cm, head circumference measures 12.8 cm, the abdominal circumference measures 10.7 cm, and the femoral length measures 2.1 cm. The estimated gestational age is 16 weeks and 4 days with an estimated date of delivery at 01/07/2019. Estimated weight is 157 g. Overall the fetus is within the 81st percentile. Placenta appears intact. Ovaries are not noted however, no abnormality noted within the adnexa. IMPRESSION: 1. Single live intrauterine . 2. Estimated gestational age is 16 weeks and 4 days.
[2018-07-27 15:57] VITALS: BP 98/53
== END 2018-07-27 15:47 | disposition home or self-care (01) ==
LOC: MW.ED 13:34
DX: O26.892 Other specified pregnancy related conditions, second trimester (principal); R10.9 Unspecified abdominal pain; O99.342 Other mental disorders complicating pregnancy, second trimester; Z3A.16 16 weeks gestation of pregnancy; Z88.1 Allergy status to other antibiotic agents; Z88.8 Allergy status to other drugs, medicaments and biological substances
CPT/HCPCS: 36415; 76815; 76815-26; 80053; 81001; 84702; 85025; 99284-25

== ENCOUNTER 2018-08-27 14:19 | Emergency (ER) | payer BC, OTHER ==
[2018-08-27 14:29] VITALS: BP 105/49
--- NOTE | 2018-08-27 14:40 | EDM.PDOC ---
ED HPI GENERAL MEDICAL PROBLEM - General Chief Complaint: Lower Extremity Injury/Pain Stated Complaint: POSSIBLE BLOOD CLOT 20 WEEKS PREG Time Seen by Provider: 08/27/18 14:21 Source of Information: Reports: Patient History Limitations: Reports: No Limitations - History of Present Illness INITIAL COMMENTS - FREE TEXT/NARRATIVE: History of present illness: []Patient is 20 weeks and had a muscle cramp in her left calf last night with continuing pain and swelling of her calf today. Sensation is concerned she may have a blood clot. Patient denies any chest pain, shortness of breath, fevers, chills, belly pain, vaginal discharge or bleeding Review of systems: As per history of present illness and below otherwise all systems reviewed and negative. Past medical history: As per history of present illness and as reviewed below otherwise noncontributory. Surgical history: As per history of present illness and as reviewed below otherwise noncontributory. Social history: No reported history of drug or alcohol abuse. Family history: As per history of present illness and as reviewed below otherwise noncontributory. Physical exam: General: Well developed, well nourished in NAD HEENT: Atraumatic, normocephalic, pupils reactive, negative for conjunctival pallor or scleral icterus, mucous membranes moist, throat clear, neck supple, nontender, trachea midline. Lungs: Clear to auscultation, breath sounds equal bilaterally, chest nontender. Heart: S1S2, regular, negative for clicks, rubs, or JVD. Abdomen: NABS, Soft, nondistended, nontender. heart tones 155 Negative for masses or hepatosplenomegaly. Negative for costovertebral tenderness. Pelvis: Stable nontender. Genitourinary: Deferred. Rectal: Deferred. Extremities: Atraumatic, negative for cords or calf pain. No swelling noted, positive tenderness posterior calf Neurovascular unremarkable. Neuro: Awake, alert, oriented. Cranial nerves II through XII unremarkable. Cerebellum unremarkable. Motor and sensory unremarkable throughout. Exam nonfocal. Skin:warm and dry Diagnostics: Ultrasound no DVT Therapeutics: None ED Course: Unremarkable Impression: Left leg pain Prescriptions: None Plan: Follow-up with OB as needed Definitive disposition and diagnosis as appropriate pending reevaluation and review of above. 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 MILLINERY WORKER History: laparoscopy for endometriosis x 3 Musculoskeletal History: Reports: None Neurological History: Reports: Neuropathy, Peripheral, Seizure, Other (See Below ) Other Neuro History: Guillian [place] Psychiatric History: Reports: Anxiety, Depression, Mood Swings Endocrine/Metabolic History: Reports: None Hematologic History: Reports: None Immunologic History: Reports: None Oncologic (Cancer) History: Reports: None Dermatologic History: Reports: None - Infectious Disease History Infectious Disease History: Reports: None - Past Surgical History HEENT Surgical History: Reports: Adenoidectomy, Tonsillectomy GI Surgical History: Reports: Appendectomy, EGD Female Surgical History: Reports: Endometrial Ablation Social & Family History - Family History Family Medical History: Noncontributory - Tobacco Use Smoking Status *Q: Never Smoker - Caffeine Use Caffeine Use: Reports: Coffee, Energy Drinks, Soda, Tea Caffeine Use Comment: 1 cup daily - Recreational Drug Use Recreational Drug Use: No Review of Systems - Review of Systems Review Of Systems: ROS reveals no pertinent complaints other than HPI. ED EXAM, GENERAL - Physical Exam Exam: See Below (History of present illness) Course - Vital Signs Last Recorded V/S: Last Vital Signs Temp 97.5 F 08/27/18 14:26 Pulse 89 08/27/18 14:26 Resp 18 08/27/18 14:26 BP 105/49 L 08/27/18 14:26 Pulse Ox 99 08/27/18 14:26 Departure - Departure Time of Disposition: 16:14 Disposition: Home, Self-Care 01 Condition: Good Clinical Impression: Leg pain, left - Discharge Information *PRESCRIPTION DRUG MONITORING PROGRAM REVIEWED*: No *COPY OF PRESCRIPTION DRUG MONITORING REPORT IN PATIENT CALI: No Referrals: Francine Ramos CNM [Primary Care Provider] - Forms: ED Department Discharge Additional Instructions: The following information is given to patients seen in the emergency department who are being discharged to home. This information is to outline your options for follow-up care. We provide all patients seen in our emergency department with a follow-up referral. The need for follow-up, as well as the timing and circumstances, are variable depending upon the specifics of your emergency department visit. If you don't have a primary care physician on staff, we will provide you with a referral. We always advise you to contact your personal physician following an emergency department visit to inform them of the circumstance of the visit and for follow-up with them and/or the need for any referrals to a consulting specialist. The emergency department will also refer you to a specialist when appropriate. This referral assures that you have the opportunity for follow-up care with a specialist. All of these measure are taken in an effort to provide you with optimal care, which includes your follow-up. Under all circumstances we always encourage you to contact your private physician who remains a resource for coordinating your care. When calling for follow-up care, please make the office aware that this follow-up is from your recent emergency room visit. If for any reason you are refused follow-up, please contact the [facility] Emergency Department at and asked to speak to the emergency department charge nurse. [facility] Primary Care - Women's Health [address] [place] [phone]
--- NOTE | 2018-08-27 16:05 | US ---
INDICATION: Left lower extremity pain and swelling. . TECHNIQUE: Ultrasound venous duplex lower left extremity. Compression venous exam was performed using hassan-scale, color Doppler, and spectral Doppler analysis. COMPARISON: No comparison. FINDINGS: Sonographic imaging demonstrates the left common femoral, deep femoral, superficial femoral, popliteal, posterior tibial and greater saphenous and the contralateral right common femoral veins to be fully compressible with normal color Doppler blood flow and augmentation. IMPRESSION: No sign of deep venous thrombosis. Dictated by Av Thomson MD @ Aug 27 2018 4:02PM Signed by Dr. Av Thomson @ Aug 27 2018 4:03PM
== END 2018-08-27 16:24 | disposition home or self-care (01) ==
LOC: MW.ED 14:19
DX: O99.89 Other specified diseases and conditions complicating pregnancy, childbirth and the puerperium (principal); M79.605 Pain in left leg; Z88.1 Allergy status to other antibiotic agents; Z88.8 Allergy status to other drugs, medicaments and biological substances; Z3A.20 20 weeks gestation of pregnancy
CPT/HCPCS: 93971-26-LT; 93971-LT; 99282; 99284-25